=== PATIENT | male | born 1980 | race Caucasian/White ===

== ENCOUNTER 2024-07-02 12:41 | Outpatient (CLI) | payer OTHER, SELFPAY ==
--- NOTE | ~2024-07-02 | CT_ITS ---
EXAMINATION: CT abdomen pelvis w con DATE: 07/02/2024 13:27 INDICATION: Unspecified abdominal pain. TECHNIQUE: Computed tomography (CT) of the abdomen and pelvis was performed with 100 mL Omnipaque-350 intravenous contrast. Automated exposure control and iterative reconstruction technique were employe d. The dose-length product was 1263.08 mGy-cm. COMPARISON: None FINDINGS: Calcified right middle lobe nodule and calcified right hilar lymph nodes consistent with old granulom atous disease. Arch size is normal. No pericardial or pleural effusion. Small sliding-type hiatal her cammie. Liver, gallbladder, spleen, pancreas, bilateral adrenal glands and kidneys are normal. Dilated f luid-filled appendix measuring 1.5 cm diameter with appendiceal wall thickening measuring 2-3 mm in t hickness. The suspicious for acute appendicitis although there is no definitive surrounding inflammat ory stranding to more specifically suggest this. Remainder of the bowels are unremarkable with no obs truction. Bladder is normal. No free intraperitoneal gas or fluid. No pathologically enlarged abdomin al or pelvic lymphadenopathy. Mild thoracic and lumbar spondylosis. IMPRESSION: 1. Dilated fluid-filled appendix with appendiceal wall thickening but without surrounding periappendi ceal inflammatory stranding equivocal for early acute appendicitis. Dr. Albert discussed these find ings with ARJUN Oneil at 1:42 PM. 2. Small sliding-type hiatal hernia. Reviewed, dictated and finalized at location B. IMPRESSION: 1. Dilated fluid-filled appendix with appendiceal wall thickening but without s urrounding periappendiceal inflammatory stranding equivocal for early acute tiffanie endicitis. Dr. Albert discussed these findings with ARJUN Oneil at 1:42 PM. 2. Small sliding-type hiatal hernia.
[2024-07-02 13:21] LABS: Estimated Glomerular Filt Rate > 60
== END 2024-07-02 12:42 | disposition home or self-care (01) ==
LOC: ANHIMG 12:45
PROVIDERS: PCP Physician Assistant Medical; Visit Provider Physician Assistant Medical
DX: R10.9 Unspecified abdominal pain (principal); K44.9 Diaphragmatic hernia without obstruction or gangrene
CPT/HCPCS: 74177; Q9967

== ENCOUNTER 2024-07-02 13:50 | Observation (INO) | payer OTHER, SELFPAY ==
[2024-07-02] VITALS (10 sets, daily range): BP systolic 107–146; BP diastolic 65–88; PULSE 76–116; RESP 12–20; TEMP 36.7–37.3; O2SAT 90–100; BMI 33.4
[2024-07-02 14:34] LABS: Basophils Percent Auto 0.3 % (0.2-1.2); Eosinophils Absolute Auto 0.1 K/mm3 (0-0.3); Eosinophils Percent Auto 0.4 % (0-4.4); Hematocrit 44.8 % (42.0-52.0); Hemoglobin 15.7 g/dL (14.0-18.0); Immature Granulocyte Absolute 0.06 K/mm3 (0.00-0.031); Immature Granulocyte Percent A 0.4 % (0-0.5); Lymphocytes Absolute Auto 1.44 K/mm3 (0.9-3.2); Lymphocytes Percent Auto 10.7 % (18.3-44.2); Mean Corpuscular Hemoglobin 29.8 pg (26-34); Mean Platelet Volume 9.5 fl (7.4-10.4); Monocytes Absolute Auto 1.2 K/mm3 (0.1-0.6); Monocytes Percent Auto 8.7 % (2.6-8.5); Neutrophils Absolute Auto 10.7 K/mm3 (1.3-6.7); Neutrophils Percent Auto 79.5 % (45.5-73.1); Platelet Count Result 308 k/mm3 (150-375); Red Blood Count 5.27 M/mm3 (4.6-6.20); Red Cell Distribution Width 11.9 % (11.5-14.5); White Blood Count 13.5 K/mm3 (4.5-10.0)
[2024-07-02 14:44] LABS: Alanine Aminotransferase 55 U/L (6-50); Albumin Level 4.4 g/dL (3.5-5.1); Alkaline Phosphatase 71 U/L (38-126); Anion Gap 11 mmol/L (4-12); Aspartate Amino Transferase 33 U/L (17-59); Bilirubin,Total 1.1 mg/dL (0.2-1.3); Blood Urea Nitrogen 12 mg/dL (9-20); Carbon Dioxide 25 mmol/L (22-30); Chloride 100 mmol/L (98-107); Estimated CRCL calculation 119 ml/min; Estimated Glomerular Filt Rate > 60; Glucose 95 mg/dL (65-110); Lipase 39 U/L (23-300); Potassium 3.7 mmol/L (3.4-5.0); Sodium 136 mmol/L (137-145)
--- NOTE | 2024-07-02 15:03 | ED.ABDPAIN ---
HPI - Abdominal Pain General Chief Complaint: Abdominal Pain <GEOFF Pickering Last Filed: 07/02/24 16:03> Stated Complaint: appendicitis <GEOFF Pickering Last Filed: 07/02/24 16:03> Time Seen by Provider: 07/02/24 13:56 <GEOFF Pickering Last Filed: 07/02/24 16:03> Source: patient <GEOFF Pickering Last Filed: 07/02/24 16:03> Mode of arrival: ambulatory <EGOFF Pickering Last Filed: 07/02/24 16:03> Limitations: no limitations <GEOFF Pickering Last Filed: 07/02/24 16:03> History of Present Illness HPI narrative: This is a 43-year-old male that presents to the emergency department for right lower quadrant abdominal pain. Ongoing since last night. Had an outpatient CT scan today which showed appendicitis. Denies fevers or vomiting. <GEOFF Pickering Last Filed: 07/02/24 16:03> Related Data Home Medications: Home Medications Medication Instructions Recorded Confirmed doxycycline hyclate 50 mg capsule 50 mg PO DAILY 07/02/24 07/02/24 hyoscyamine sulfate 0.375 mg 0.375 mg PO DAILY PRN Abdominal 07/02/24 07/02/24 tablet,extended release,12 hr Pain <GEOFF Pickering Last Filed: 07/02/24 16:03> Allergies/Adverse Reactions: Allergies Allergy/AdvReac Type Severity Reaction Status Date / Time No Known Allergies Allergy Verified 07/02/24 16:22 <GEOFF Pickering Last Filed: 07/02/24 16:03> Review of Systems Review of Systems: CONSTITUTIONAL: Denies fever GASTROINTESTINAL: Reports abdominal pain. Denies nausea, vomiting GENITOURINARY: Denies dysuria <GEOFF Pickering Last Filed: 07/02/24 16:03> All systems reviewed & are unremarkable except as noted in HPI and below <GEOFF Pickering Last Filed: 07/02/24 16:03> [facility] Past Medical History Medical History: Medical History HTN (hypertension) IBS (irritable bowel syndrome) <Michelle Lucia PA-C - Last Filed: 07/02/24 16:03> Surgical History Surgical History: Surgical History History of chest tube placement 11yo due to pneumonia History of wisdom tooth extraction <Michelle Lucia PA-C - Last Filed: 07/02/24 16:03> Family History Family History: Family History Father No problems noted. Mother MVA (motor vehicle accident) Sibling No problems noted. Sibling No problems noted. Grandparent Heart disease Hay fever Hx of CABG <Michelle Lucia PA-C - Last Filed: 07/02/24 16:03> Social History Social History: Social History Social History: Pt is very confident in filling out medical forms. Pt has not received assistance in the last 12 months. 07/02/24 Years smoked: 7 Smoking status: Never smoker Tobacco type: cigarettes Alcohol intake: never Alcohol use details: rare Substance use: never Substance use type: does not use Do You Feel Safe in your Home?: Yes Lack of Transportation: No Lack of Food: Never True Current Housing: I Have Housing Concerned About Future Housing: No Difficulty Paying Gas/Electric Bills: No Difficulty Paying for Meds: No Currently Unemployed: No Education: High School Diploma/GED Difficulty w/ Childcare or Family Care: No Living arrangements: with family Occupation/Education: occupation Gender identity (if verbalized by the patient): Male Sexual Orientation (if Verbalized by the Patient): Straight or Heterosexual Spiritual care concerns: No <Michelle Lucia PA-C - Last Filed: 07/02/24 16:03> Exam Narrative: GENERAL: Well-appearing, well-nourished, and in no acute distress. HEAD: Normocephalic, atraumatic. EYES: EOMI. CHEST: Clear to auscultation. No respiratory
[2024-07-02] MEDS: SODIUM CHLORIDE 0.9% IV 1,000 ML 999 ML IV CONT (15:13)
[2024-07-02] MEDS: ERTAPENEM 1 GM/NS 50 ML 1 GM/50 ML BAG IVPB (15:23)
[2024-07-02 15:33] LABS: Add Urine Microscopic? NO; Appearance Urine Clear (Clear); Bilirubin Urine Negative (Negative); Blood Urine Negative (Negative); Color Urine Yellow (Yellow); Glucose Urine UA Negative (Negative); Ketones Urine Negative (Negative); Leukocyte Esterase Ur Negative LEU/UL (Negative); Nitrate Urine Negative (Negative); Protein Urine Negative (Negative); Specific Grav Ur > 1.045 (1.001-1.035); Urobilinogen Urine 0.2 mg/dL (<2.0)
--- NOTE | 2024-07-02 15:34 | PC.NURSE ---
urine specimen sent to lab.
--- NOTE | 2024-07-02 16:00 | ADMGEN ---
This patient, Cali Wilson, was admitted to Medical Room 254-01. Patient/family oriented to hospital policies and general routines including ID bracelet, bed and alarms, visiting hours, pain management, procedures, bathroom and other care routines, personal items, smoking policy, room service/diet, and visiting hours. Information on how to activate the Rapid Response Team has been discussed. Patient/Family are encouraged to report perceived risks to care and to ask questions if they do not understand what they are told or what they should do.
[2024-07-02] MEDS: SODIUM CHLORIDE 0.9% IV 1,000 ML 125 ML IV CONT (16:48)
--- NOTE | 2024-07-02 19:12 | PM.IMHP ---
H&P: HPI History of Present Illness Date/Time: 07/02/24 19:12 Chief Complaint: Acute Appendicitis Narrative: Patient is a 43-year-old male who presented to the emergency room with a 12 to 24 hour history of worsening lower abdominal pain which localized right lower quadrant of the abdomen. He had elevated white blood count [address] in the emergency room. CT scan abdomen pelvis showed a dilated and thickened appendix which acute appeared to be acutely inflamed although there was no periappendiceal inflammation. No perforation or free air seen. No periappendiceal abscess is noted. He has hypertension and takes lisinopril for his high blood pressure. Otherwise he does not take any medications. He is a nonsmoker and nondrinker. He works in a body shop. He was admitted to the hospital and started on Invanz for IV antibiotics. He has but kept NPO. He has only had a left chest tube in the past for pneumonia and no abdominal surgery in the past. Review of Systems Review of Systems: The remainder of the review of systems to include constitutional, HEENT, cardiovascular, respiratory, GI, , integumentary, musculoskeletal, endocrine, immunologic, hematologic, psychiatric, and neurologic are all negative except for which is mentioned above in the HPI. [facility] Past Medical History Medical History HTN (hypertension) IBS (irritable bowel syndrome) Surgical History Surgical History History of chest tube placement 11yo due to pneumonia History of wisdom tooth extraction Family History Family History Father No problems noted. Mother MVA (motor vehicle accident) Sibling No problems noted. Sibling No problems noted. Grandparent Heart disease Hay fever Hx of CABG Social History Social History Social History: Pt is very confident in filling out medical forms. Pt has not received assistance in the last 12 months. 07/02/24 Years smoked: 7 Smoking status: Never smoker Tobacco type: cigarettes Alcohol intake: never Alcohol use details: rare Substance use: never Substance use type: does not use Do You Feel Safe in your Home?: Yes Lack of Transportation: No Lack of Food: Never True Current Housing: I Have Housing Concerned About Future Housing: No Difficulty Paying Gas/Electric Bills: No Difficulty Paying for Meds: No Currently Unemployed: No Education: High School Diploma/GED Difficulty w/ Childcare or Family Care: No Living arrangements: with family Occupation/Education: occupation Gender identity (if verbalized by the patient): Male Sexual Orientation (if Verbalized by the Patient): Straight or Heterosexual Spiritual care concerns: No Meds Home Medications and Allergies Home Medications Medication Instructions Recorded Confirmed Type sildenafil 100 mg tablet See Rx Instructions .Route 08/14/23 07/02/24 Rx .COMPLEX #30 tabs lisinopril 20 mg tablet 20 mg PO DAILY #90 tabs 01/30/24 07/02/24 Rx ciprofloxacin HCl 500 mg tablet 500 mg PO Q12H #14 tabs 07/02/24 07/02/24 Rx (Cipro) doxycycline hyclate 50 mg capsule 50 mg PO DAILY 07/02/24 07/02/24 History hyoscyamine sulfate 0.375 mg 0.375 mg PO DAILY PRN Abdominal 07/02/24 07/02/24 History tablet,extended release,12 hr Pain Allergies Allergy/AdvReac Type Severity Reaction Status Date / Time No Known Allergies Allergy Verified 07/02/24 16:22 Vital Signs Vital Signs - 24 hr 07/02/24 13:53 07/02/24 14:17 07/02/24 15:25 Temperature 37.0 C Pulse Rate 116 H 90 Respiratory Rate 16 16 18 Blood Pressure 129/88 117/82 123/88 Pulse Oximetry 99 97 97 Oxygen Delivery Room Air Exam Const: General: comfortable and no acute distress HENMT: Ear
--- NOTE | 2024-07-02 19:20 | WPDHPUPDATE1 ---
History and Physical Update Update Date/Time: 07/02/24 19:20 History and Physical has been reviewed, including an updated exam of the patient. There are NO changes in the patient's condition. Risks, benefits, and alternatives have been discussed and questions answered. Patient agrees to proceed with procedure.
--- NOTE | 2024-07-02 19:52 | WPDANESEPPF ---
Anes - Initial Pre Proc Eval Procedure: Operation Date: 07/02/24 20:00 Proposed Procedures p Laparoscopic Appendectomy - Eloy Laech MD Date/Time: 07/02/24 19:52 Surgeon: Eloy Leach MD Pre Op Diagnosis: Acute Appendicitis Pre Op Diagnosis: Acute Appendicitis Patient Data Age: 43 Gender: M Height: 1.83 m Weight: 111.9 kg Last Vital Signs Temp 37.0 C 07/02/24 13:53 Pulse 90 07/02/24 15:25 Resp 18 07/02/24 15:25 BP 123/88 07/02/24 15:25 Pulse Ox 97 07/02/24 15:25 O2 Del Method Room Air 07/02/24 13:53 Allergies Allergy/AdvReac Type Severity Reaction Status Date / Time No Known Allergies Allergy Verified 07/02/24 16:22 Home Medications Medication Instructions Recorded Confirmed Type sildenafil 100 mg tablet See Rx Instructions .Route 08/14/23 07/02/24 Rx .COMPLEX #30 tabs lisinopril 20 mg tablet 20 mg PO DAILY #90 tabs 01/30/24 07/02/24 Rx ciprofloxacin HCl 500 mg tablet 500 mg PO Q12H #14 tabs 07/02/24 07/02/24 Rx (Cipro) doxycycline hyclate 50 mg capsule 50 mg PO DAILY 07/02/24 07/02/24 History hyoscyamine sulfate 0.375 mg 0.375 mg PO DAILY PRN Abdominal 07/02/24 07/02/24 History tablet,extended release,12 hr Pain Laboratory Tests 07/02/24 07/02/24 07/02/24 14:23 14:24 15:23 WBC 13.5 H K/mm3 (4.5-10.0) RBC 5.27 M/mm3 (4.6-6.20) Hgb 15.7 g/dL (14.0-18.0) Hct 44.8 % (42.0-52.0) MCV 85.0 fl (80-100) MCH 29.8 pg (26-34) MCHC 35.0 g/dl (32-36) RDW 11.9 % (11.5-14.5) Plt Count 308 k/mm3 (150-375) MPV 9.5 fl (7.4-10.4) Immature Gran % (Auto) 0.4 % (0-0.5) Neut % (Auto) 79.5 H % (45.5-73.1) Lymph % (Auto) 10.7 L % (18.3-44.2) [place] % (Auto) 8.7 H % (2.6-8.5) Eos % (Auto) 0.4 % (0-4.4) Baso % (Auto) 0.3 % (0.2-1.2) Lymph # (Auto) 1.44 K/mm3 (0.9-3.2) [place] # (Auto) 1.2 H K/mm3 (0.1-0.6) Eos # (Auto) 0.1 K/mm3 (0-0.3) Baso # (Auto) 0.0 K/mm3 (0.0-0.1) Abs Immat Gran (auto) 0.06 H K/mm3 (0.00-0.031) Absolute Neuts (auto) 10.7 H K/mm3 (1.3-6.7) Absolute Nucleated RBC 0.000 K/mm3 (0.0-0.012) Nucleated RBC % 0.0 % (0.0-0.2) Sodium 136 L mmol/L (137-145) Potassium 3.7 mmol/L (3.4-5.0) Chloride 100 mmol/L (98-107) Carbon Dioxide 25 mmol/L (22-30) Anion Gap 11 mmol/L (4-12) BUN 12 D mg/dL (9-20) Creatinine 0.90 mg/dL (0.7-1.3) Estim Creat Clear Calc 119 ml/min Estimated GFR > 60 (59 - ) Glucose 95 mg/dL (65-110) Calcium 9.0 mg/dL (8.4-10.2) Total Bilirubin 1.1 mg/dL (0.2-1.3) AST 33 U/L (17-59) ALT 55 H U/L (6-50) Alkaline Phosphatase 71 U/L (38-126) Total Protein 8.0 g/dL (6.3-8.2) Albumin 4.4 g/dL (3.5-5.1) Lipase 39 U/L (23-300) Urine Color Yellow (Yellow) Urine Appearance Clear (Clear) Urine pH 7.0 (5.0-9.0) Ur Specific Ages [place] > 1.045 H (1.001-1.035) Urine Protein Negative mg/dL (Negative) Urine Glucose (UA) Negative mg/dL (Negative) Urine Ketones Negative mg/dL (Negative) Ur Blood (Man) Negative (Negative) Urine Nitrate Negative (Negative) Urine Bilirubin Negative (Negative) Urine Urobilinogen 0.2 mg/dL (<2.0) Leukocyte Esterase Rfl Negative BASSEM/UL (Negative) Patient hx anesthesia problems: none Family hx anesthesia problems: none Results Review: All pre-operative results and documents have been reviewed as part of the pre-operative evaluation. [facility] Past Medical History Medical History (Reviewed 07/02/24 @ 1
[2024-07-02] MEDS: LACTATED RINGERS 1,000 ML 30 ML IV CONT ×2 (19:58→20:57)
--- NOTE | 2024-07-02 20:08 | P.PNAN_ITS ---
Anes - Eval Final PreProcedure Day of Procedure 07/02/24 20:08 Patient weight: obese Heart: regular rate and rhythm Lungs: clear to auscultation Airway: Mallampati scale class II Neurological: alert and oriented Last oral intake: >/= 8 hours ASA classification: II Emergent: yes Anesthetic plan: proceed Anesthesia type and monitoring: general ETT and standard monitoring Results Review: All pre-operative results and documents have been reviewed as part of the pre- operative evaluation. Informed Consent: The patient's anesthetic plan and its attendant risks and benefits were discussed with the patient/family/POA. Questions were solicited and answers provided to the satisfaction of the patient/family/POA.
[2024-07-02] MEDS: LIDO 1%/EPINEPHRINE 1:100,000 20 ML VIAL 30 ML INFILTRATE (20:35)
[2024-07-02] MEDS: BUPivacaine HCL 0.5% 10 ML AMP 30 ML INFILTRATE (20:37)
--- NOTE | 2024-07-02 20:57 | W.PM.PROC2 ---
Procedure Note - Detailed Date of Procedure 07/02/24 Pre-op Diagnosis Acute Appendicitis Post-op Diagnosis Same Procedure Performed Laparoscopic appendectomy Surgeon Eloy Leach MD Anesthesia General Indications Patient is a 43-year-old white male presented to the emergency room with right lower quadrant abdominal pain and a leukocytosis to 12,000. CT scan abdomen pelvis showed acutely inflamed appendix without rupture or periappendiceal abscess. He presents now for emergent laparoscopic appendectomy. Findings The appendix was inflamed throughout its whole length. There was no perforation or gangrene. The base of the appendix was viable. Description of Procedure After informed consent was obtained patient brought to the operating room was placed supine position and general endotracheal anesthesia was administered. Looney catheter was placed decompress the bladder and then the abdomen was then prepped and draped usual sterile fashion. A time-out was then performed correctly identifying the patient as well as procedure to be performed. He was already on scheduled IV antibiotics. I entered the abdomen left upper quadrant utilizing a 5mm Optiview port. Once inside the abdomen insufflated to adequate pneumoperitoneum of 15mmHg of CO2. I then placed a 12mm periumbilical trocar port and a 5mm suprapubic trocar port and a 5mm right lower quadrant trocar port all under direct visualization. The appendix was visualized the right lower quadrant the abdomen. It was acutely inflamed throughout its whole length but there was no evidence of perforation or gangrene of the appendix. The base of the appendix was viable. With a laparoscopic grasper I held the appendix up and exposed the mesoappendix and the base of the appendix. A [place] dissected was then used to make a defect through the mesoappendix just at the base. A 45mm Endo-JENARO stapler was then used to divide the appendix flush with the cecum. A vascular reload to the a JENARO stapler was then used to divide the mesoappendix. The appendix was then placed into an Endo-Catch bag and brought out through the periumbilical trocar port site. The appendix was passed off table sent to pathology for examination. I inspected both staple lines and they were both hemostatic. I then placed the cecum back and right lower quadrant usual location and the terminal ileum was placed over the top of the staple lines. I then removed all the trocar ports under visualization all port sites appeared hemostatic. I then allowed the abdomen decompress. I then closed the 12mm periumbilical trocar port fascial defect utilizing 0 Vicryl suture. I then irrigated all the port sites sterile saline solution and hemostasis was good. I then closed all the port sites at the skin level utilizing a running subcuticular 4 Monocryl suture. The incisions were then cleaned the skin glue sterile dressings were applied. The patient tolerated the procedure well no complications. All sponges, needles, and instrument counts were correct at the end procedure. EBL was _15__cc. The patient was awakened and taken to recovery in stable and satisfactory condition. Implants None Estimated Blood Loss 15 Drains No Packing No Pathology Yes (Appendix to pathology) Complications No immediate complications Condition Stable Disposition PACU [facility] Billing Surgery - Charge Forward: Surgery Billing
[2024-07-02] MEDS: fentaNYL CITRATE INJ (*CRX) 100 MCG/2 ML VIAL 25 MCG IV PUSH (21:19)
[2024-07-03 00:14] VITALS: BP 114/66; PULSE 64; RESP 18; TEMP 36.8; O2SAT 92
[2024-07-03 01:13] VITALS: BP 101/66; PULSE 81; RESP 16; TEMP 36.9; O2SAT 94
[2024-07-03 02:11] VITALS: BP 108/70; PULSE 75; RESP 18; TEMP 36.8; O2SAT 92
[2024-07-03] MEDS: SODIUM CHLORIDE 0.9% IV 1,000 ML 125 ML IV CONT (02:23)
[2024-07-03] MEDS: oxyCODONE HCL (*CRX) 5 MG TAB IR PO (02:23)
[2024-07-03 06:00] VITALS: BP 114/64; PULSE 88; RESP 20; TEMP 36.6; O2SAT 93
--- NOTE | 2024-07-03 07:35 | WPDANESPN ---
Anes - Prog Note Post-Op Date/Time: 07/03/24 07:35 Cardiovascular status: normal Respiratory status: normal Airway patency: baseline Mental status: baseline Post-Op hydration status: normal Vital Signs: Last Vital Signs Temp 36.6 C 07/03/24 06:00 Pulse 88 07/03/24 06:00 Resp 20 07/03/24 06:00 BP 114/64 07/03/24 06:00 Pulse Ox 93 07/03/24 06:00 O2 Del Method Room Air 07/02/24 22:15 O2 Flow Rate 6 07/02/24 21:10 Pain Score (VAS): 12/20 I/O: Intake & Output 07/02/24 07/02/24 07/03/24 15:59 23:59 07:59 Intake Total 6725 442 5839 Balance 0564 905 6934 Laboratory Tests 07/02/24 14:23 07/02/24 14:24 07/02/24 07/02/24 07/02/24 14:23 14:24 15:23 WBC 13.5 H RBC 5.27 Hgb 15.7 Hct 44.8 MCV 85.0 MCH 29.8 MCHC 35.0 RDW 11.9 Plt Count 308 MPV 9.5 Immature Gran % (Auto) 0.4 Neut % (Auto) 79.5 H Lymph % (Auto) 10.7 L [place] % (Auto) 8.7 H Eos % (Auto) 0.4 Baso % (Auto) 0.3 Lymph # (Auto) 1.44 [place] # (Auto) 1.2 H Eos # (Auto) 0.1 Baso # (Auto) 0.0 Abs Immat Gran (auto) 0.06 H Absolute Neuts (auto) 10.7 H Absolute Nucleated RBC 0.000 Nucleated RBC % 0.0 Sodium 136 L Potassium 3.7 Chloride 100 Carbon Dioxide 25 Anion Gap 11 BUN 12 D Creatinine 0.90 Estim Creat Clear Calc 119 Estimated GFR > 60 Glucose 95 Calcium 9.0 Total Bilirubin 1.1 AST 33 ALT 55 H Alkaline Phosphatase 71 Total Protein 8.0 Albumin 4.4 Lipase 39 Urine Color Yellow Urine Appearance Clear Urine pH 7.0 Ur Specific [place] > 1.045 H Urine Protein Negative Urine Glucose (UA) Negative Urine Ketones Negative Ur Blood (Man) Negative Urine Nitrate Negative Urine Bilirubin Negative Urine Urobilinogen 0.2 Leukocyte Esterase Rfl Negative Post-procedural complaints: none Patient Feedback: Patient satisfied with anesthetic care.
[2024-07-03] MEDS: HYDROcodone/acetaminophen (*CRX) 5-325 MG TABLET 1 TAB PO ×2 (08:36→13:01)
[2024-07-03] MEDS: lisinopriL 20 MG TABLET PO (08:36)
--- NOTE | 2024-07-03 09:34 | PM.DS ---
DS: Admitting Diagnosis Discharge Date July 03, 2024 Admitting Diagnosis Acute appendicitis DS: Discharge Diagnosis Discharge Diagnosis (1) Acute appendicitis: Qualifiers: Acute appendicitis type: with localized peritonitis Appendicitis abscess presence: without abscess Appendicitis gangrene presence: without gangrene Appendicitis perforation presence: without perforation Qualified Code(s): K35.30 - Acute appendicitis with localized peritonitis, without perforation or gangrene Code(s): K35.80 - Unspecified acute appendicitis Status: Acute DS: Summary Hospital Course Reason for hospitalization: Acute appendicitis Hospital Course: Patient ID 1 day history of worsening abdominal pain which localized right lower quadrant the abdomen. Some nausea vomiting but no diarrhea. An elevated white blood count [id number] scan abdomen pelvis showed a dilated and thickened fluid-filled appendix consistent with acute appendicitis which was non perforated. He was admitted to the surgical floor started on some IV antibiotics. Kept NPO and hydrated IV fluids. Later on the day of admission he was then taken urgently to the operating room where he underwent uncomplicated laparoscopic appendectomy. Postoperatively his course recovery room was uneventful and was transferred back to surgical floor. Routine postoperative care and surgical floor and was able to get up and ambulate without difficulty. Urinate spontaneously without difficulty. Tolerated full liquids and then the day after surgery he was given a regular diet which he tolerated. Was only taking [place] for pain and I needing IV pain medications. I examine his abdomen was soft and port sites are healing well. His right lower quadrant pain has resolved. He was afebrile. He was discharged home on postop day 1 in improved condition. Status at Discharge Functional status at discharge: independent ambulation Overall status at discharge: patient is back to baseline Time Spent with Patient Time attestation: Total time spent providing and/or coordinating discharge services: Time spent: Less than 30 minutes Exam GI: Other: Abdomen is soft and nondistended. Port sites are healing well. No drainage. Slight ecchymosis around the umbilicus without hematoma. Mild tenderness around port site incisions which were expected. Prior right lower quadrant tenderness has resolved. DS: Data Data Completed and Pending Pending studies at discharge: Pending at discharge 07/02/24 20:20 Surgical [PTH] Routine Labs on day of discharge: Labs from last 24 hours 07/02/24 07/02/24 07/02/24 15:23 14:24 14:23 WBC 13.5 H RBC 5.27 Hgb 15.7 Hct 44.8 MCV 85.0 MCH 29.8 MCHC 35.0 RDW 11.9 Plt Count 308 MPV 9.5 Immature Gran % (Auto) 0.4 Neut % (Auto) 79.5 H Lymph % (Auto) 10.7 L [place] % (Auto) 8.7 H Eos % (Auto) 0.4 Baso % (Auto) 0.3 Lymph # (Auto) 1.44 [place] # (Auto) 1.2 H Eos # (Auto) 0.1 Baso # (Auto) 0.0 Abs Immat Gran (auto) 0.06 H Absolute Neuts (auto) 10.7 H Absolute Nucleated RBC 0.000 Nucleated RBC % 0.0 Sodium 136 L Potassium 3.7 Chloride 100 Carbon Dioxide 25 Anion Gap 11 BUN 12 D Creatinine 0.90 Estim Creat Clear Calc 119 Estimated GFR > 60 Glucose 95 Calcium 9.0 Total Bilirubin 1.1 AST 33 ALT 55 H Alkaline Phosphatase 71 Total Protein 8.0 Albumin 4.4 Lipase 39 Urine Color Yellow Urine Appearance Clear Urine pH 7.0 Ur Specific [place] > 1.045 H Urine Protein Negative Urine Glucose (UA) Negative Urine Ketones Negative Ur Blood (Man) Negative Urine Nitrate Negative Urine Bilirubin Negative Urine Urobilinogen 0.2 Leukocyte Esterase Rfl Negative Discharge Plan Discharge Attending physician on discharge: Eloy Leach Discharging Clinician: Jerry
== END 2024-07-03 13:25 | disposition home or self-care (01) ==
LOC: ANHED 14:30 → ANH2MED 15:21
PROVIDERS: Admitting Provider Surgery; Emergency Provider Physician Assistant; PCP Physician Assistant Medical; Visit Provider Surgery
PROC: 0DTJ4ZZ Resection of Appendix, Percutaneous Endoscopic Approach (ICD-10-PCS; CPT 44970; principal; 2024-07-02 20:00)
DX: K35.30 Acute appendicitis with localized peritonitis, without perforation or gangrene (principal); I10 Essential (primary) hypertension; K58.9 Irritable bowel syndrome, unspecified; E66.9 Obesity, unspecified; Z68.33 Body mass index [BMI] 33.0-33.9, adult
CPT/HCPCS: 44970; 36415; 74177; 80053; 81003; 83690; 85025; 88304; 96365; 99285; A9270; G0378; J1100; J1170; J1335; J2250; J2405; J2704; J3010; J7030; J7120; Q9967